=== PATIENT | female | born 1990 | race Two or more races ===

== ENCOUNTER 2019-04-05 22:36 | Emergency (ER) | payer SELFPAY ==
[~2019-04-05] VITALS: Ht 165.1 cm; Wt 82.2 kg
[2019-04-05 23:15] VITALS: Ht 165.1 cm; Wt 82.2 kg
[2019-04-06 02:11] VITALS: BP 106/71
== END 2019-04-06 02:11 | disposition home or self-care (01) ==
LOC: ED 22:36
DX: S62.667A Nondisplaced fracture of distal phalanx of left little finger, initial encounter for closed fracture (principal); Z88.8 Allergy status to other drugs, medicaments and biological substances; W23.0XXA Caught, crushed, jammed, or pinched between moving objects, initial encounter; Y93.89 Activity, other specified; Y92.89 Other specified places as the place of occurrence of the external cause; Y99.8 Other external cause status
CPT/HCPCS: Q0092